=== PATIENT | female | born 1990 | race Caucasian/White ===

== ENCOUNTER 2017-02-28 09:59 | Day surgery (SDC) | payer BC ==
[~2017-02-28] VITALS: Ht 162.6 cm; Wt 85.5 kg
[~2017-02-28 09:59] MED LIST: BUPIVACAINE/PF-EPI 0.5% 1:200K ONE; HYDR25CA PO; OXCA600T3 PO
[2017-02-28] MEDS ORDERED: LACTATED RINGERS 1,000 ML IV SCH (10:32)
[2017-02-28 11:02] VITALS: BP 130/80
[2017-02-28 12:26] LABS: HCG UR OBC PASS
[2017-02-28] MEDS ORDERED: SCOPOLAMINE PATCH, 1.5MG PATCH.TD72 TD ONE ×2 (12:42)
[2017-02-28] MEDS ORDERED: PROPOFOL 10 MG/ML, 20ML ONE (12:52)
[2017-02-28] MEDS ORDERED: DEXAMETHASONE 4 MG/ML, 1ML ONE (12:52)
[2017-02-28] MEDS ORDERED: NEOSTIGMINE 1 MG/ML, 10ML ONE (12:52)
[2017-02-28] MEDS ORDERED: ONDANSETRON 2MG/ML, 2ML ONE (12:52)
[2017-02-28] MEDS ORDERED: ROCURONIUM 10 MG/ML ONE (12:52)
[2017-02-28] MEDS ORDERED: KETOROLAC 30 MG/1 ML ONE (12:52)
[2017-02-28] MEDS ORDERED: CEFAZOLIN 1,000 MG ONE (12:52)
[2017-02-28] MEDS ORDERED: SUCCINYLCHOLINE 20 MG/ML, 10ML ONE (12:52)
[2017-02-28] MEDS ORDERED: GLYCOPYRROLATE 0.2MG/1ML ONE (12:52)
[2017-02-28] MEDS ORDERED: MIDAZOLAM 1 MG/ML, 2ML ONE ×2 (12:53→14:00)
[2017-02-28] MEDS ORDERED: FENTANYL PF 250 MCG/5ML ONE (12:55)
[2017-02-28] MEDS ORDERED: ACETAMINOPHEN 650 MG/20.3 ML UDC ONE (13:34)
[2017-02-28] MEDS ORDERED: HYDROmorphone 1 MG/ML, 1ML ONE ×2 (13:35→14:26)
[2017-02-28] MEDS ORDERED: FENTANYL PF 100 MCG/2ML ONE (13:35)
[2017-02-28] MEDS ORDERED: OXYcodone 5 MG/5 ML ORAL.SOL UDC ONE (13:35)
[2017-02-28] MEDS: HYDROmorphone 1 MG/ML, 1ML IV PRN ×4 (13:36→14:33)
[2017-02-28] MEDS: FENTANYL PF 100 MCG/2ML IV PRN ×2 (13:40→13:55)
[2017-02-28] MEDS ORDERED: PROMETHAZINE 25 MG/ML, 1ML ONE (14:00)
[2017-02-28] MEDS ORDERED: ACETAMINOPHEN 325 MG TABLET PO PRN (14:00)
[2017-02-28] MEDS ORDERED: OXYcodone 5 MG/5 ML ORAL.SOL UDC PO PRN (14:00)
[2017-02-28] MEDS ORDERED: HYDROcodone/APAP 7.5-325MG/15ML UDC PO PRN (14:00)
[2017-02-28] MEDS ORDERED: ONDANSETRON 2MG/ML, 2ML IVPush PRN (14:00)
[2017-02-28] MEDS ORDERED: PROMETHAZINE 25 MG/ML, 1ML IV PRN (14:00)
[2017-02-28] MEDS ORDERED: MEPERIDINE/PF 25MG/0.5ML IVPush PRN (14:00)
[2017-02-28] MEDS: MIDAZOLAM 1 MG/ML, 2ML IV PRN ×2 (14:03→14:26)
[2017-02-28] MEDS ORDERED: PROMETHAZINE 25 MG SUPP PR ONE (15:41)
[2017-02-28] MEDS ORDERED: PROMETHAZINE 25 MG SUPP PR PRN (16:00)
== END 2017-02-28 16:15 ==
LOC: OUT 09:59
PROVIDERS: ATTEND Surgery
DX: K81.1 Chronic cholecystitis (principal); K82.8 Other specified diseases of gallbladder; G89.4 Chronic pain syndrome; Z98.890 Other specified postprocedural states; Z83.3 Family history of diabetes mellitus; Z82.49 Family history of ischemic heart disease and other diseases of the circulatory system; Z72.89 Other problems related to lifestyle; Z87.891 Personal history of nicotine dependence
CPT/HCPCS: 47562; 81003; 81025; 88304; J0330; J0690; J1100; J1170; J1885; J2250; J2405; J2550; J2704; J2710; J3010; J7120; J3490

== ENCOUNTER 2017-03-02 07:23 | Emergency (ER) | payer BC ==
[~2017-03-02] VITALS: Ht 162.6 cm; Wt 85.7 kg
[~2017-03-02 07:23] MED LIST changes: -BUPIVACAINE/PF-EPI 0.5% 1:200K ONE
[2017-03-02] MEDS ORDERED: ONDANSETRON 2MG/ML, 2ML ONE (08:15)
[2017-03-02] MEDS ORDERED: HYDROmorphone 1 MG/ML, 1ML ONE ×2 (08:15→09:29)
[2017-03-02] MEDS ORDERED: SODIUM CHLORIDE FLUSH 10ML SYR IVF ONE (08:30)
[2017-03-02] MEDS ORDERED: SODIUM CHLORIDE 0.9% 1,000ML IVBOLUS ONE (08:30)
[2017-03-02] MEDS ORDERED: ONDANSETRON 2MG/ML, 2ML IVPush ONE (08:30)
[2017-03-02] MEDS: HYDROmorphone 1 MG/ML, 1ML IVPush PRN ×2 (08:32→09:33)
[2017-03-02 08:36] LABS: ASPARTATE AMINO TRANSFERASE 55 U/L (15-37); BLOOD UREA NITROGEN 8 mg/dL (7-18)
[2017-03-02] MEDS ORDERED: OMNIPAQUE 350 MG/ML, 100ML BOTTLE ONE (11:01)
[2017-03-02 13:02] VITALS: BP 120/84
== END 2017-03-02 13:04 | disposition home or self-care (01) ==
LOC: ED 07:42
DX: R10.84 Generalized abdominal pain (principal); R10.11 Right upper quadrant pain; R11.2 Nausea with vomiting, unspecified; Z90.49 Acquired absence of other specified parts of digestive tract
CPT/HCPCS: 36415; 74177; 80053; 81001; 83690; 85025; 87086; 96361; 96374; 96375; 96376; 99285; J1170; J2405; J7030; Q9967